=== PATIENT | female | born 1955 | race African-American/Black ===

== ENCOUNTER 2016-10-17 15:10 | Emergency (ER) | payer SELFPAY ==
[~2016-10-17] VITALS: Ht 162.6 cm; Wt 80.0 kg
[~2016-10-17 15:10] MED LIST: HYDR10SO PO; LOTR10CA PO; TRAM50 PO; ULTR50TA PO
[2016-10-17 15:12] VITALS: BP 153/74; PULSE 115; RESP 14; TEMP 98.2; O2SAT 99
[2016-10-17] MEDS ORDERED: MEDR4PAK PO (16:32)
--- NOTE | 2016-10-17 16:32 | PD ---
HPI Chief Complaint: Back/ Neck Pain or Injury Time Seen by Provider: 16:30 Travel History International Travel<30 days: No Contact w/Intl Traveler<30days: No Traveled to known affect area: No History of Present Illness HPI 61-year-old female presents to the emergency department requesting tramadol for her osteoarthritis flareup 3 days in bilateral knees. Denies fever, chills, nausea, vomiting. Denies erythema or edema to the knees. Reports pain is worse with walking. Denies paresthesias, loss of sensation, decreased range of motion, decreased strength to bilateral lower extremities. Has been taking over -the-counter medications with no relief. No known allergies. No other modifying factors or associated signs and symptoms. PFSH Past Medical History Arthritis: Yes Cancer: Yes (COLON) Cardiovascular Problems: No Diabetes: No Endocrine: No Gastrointestinal Disorders: Yes (GERD ; TUMOR COLON) Genitourinary: No Hepatitis: No Hiatal Hernia: Yes Hypertension: Yes Immune Disorder: No Musculoskeletal: Yes (ARTHRITIS; BACK AND NECK PAIN) Neurologic: No Psychiatric: No Reproductive: No Respiratory: No Thyroid Disease: No Menopausal: Yes Past Surgical History Abdominal Surgery: Yes (CHOLECYSTECTOMY) Body Medical Devices: STEEL PINS IN LEFT TOES Cholecystectomy: Yes Other Surgery: Yes Social History Alcohol Use: No Tobacco Use: No Substance Use: No Allergies-Medications (Allergen,Severity, Reaction): Coded Allergies: No Known Allergies (Unverified , 07/10/16) Reported Meds & Prescriptions Reported Meds & Active Scripts Active Medrol Dosepak (Methylprednisolone) 4 Mg Dspk 4 Mg PO DIRECTED Per Pharmacist direction Ultram (Tramadol HCl) 50 Mg Tab 50 Mg PO Q6H PRN FOR PAIN Ultram (Tramadol HCl) 50 Mg Tab 50 Mg PO Q8 PRN Reported Hydrocodone/Acetaminophen (Miscellaneous Medication) 1 Tab 1 Tab PO Q4-6H PRN Amyfrv93 - 10 Mg/20 Mg Cap 1 Tab PO DAILY Review of Systems Except as stated in HPI: all other systems reviewed are Neg Physical Exam Narrative GENERAL: Well-nourished, well-developed female patient, in no acute distress SKIN: Warm and dry. HEAD: Atraumatic. Normocephalic. EYES: Pupils equal and round. No scleral icterus. No injection or drainage. ENT: Mucosa pink and moist. Airway patent. NECK: Trachea midline. CARDIOVASCULAR: Regular rate. RESPIRATORY: No accessory muscle use. GASTROINTESTINAL: Rounded. MUSCULOSKELETAL: Bilateral knees are nonedematous and nonerythematous; no tenderness on palpation to the lateral, patellar, medial aspect; no obvious deformity; full range of motion with flexion to 90. Bilateral lower extremities are supple and non-tense with 2+ pedal pulses and sensory intact and without erythema or edema. Sensory intact. Ambulatory with a limp. Knee joints stable. Negative drawer test. NEUROLOGICAL: Awake and alert. Oriented 3. No obvious cranial nerve deficits. Motor grossly within normal limits. Normal speech. PSYCHIATRIC: Appropriate mood and affect; insight and judgment normal. Data Data Last Documented VS Vital Signs Date Time Temp Pulse Resp B/P Pulse Ox O2 Delivery O2 Flow Rate FiO2 10/17/16 15:12 98.2 115 14 153/74 99 Room Air MDM Medical Decision Making Medical Screen Exam Complete: Yes Emergency Medical Condition: Yes Medical Record Reviewed: Yes Differential Diagnosis Osteoarthritis, narcotic seeking, knee pain Narrative Course 61-year-old female requesting tramadol for osteoarthritis flareup 3 days. States she has also arthritis in both of her knees and for the past 3 days it has been painful and she comes here for tramadol. Patient is ambulatory with a limp. Afebrile. Denies fever, chills, nausea, vomiting. Heart rate recheck on physical exam is approximately 90 bpm. I offered the patient a nonnarcotic and she declined. Medrol Dosepak prescribed for home. Patient is medically cleared and stable for discharge. Discussed reasons to return to the emergency department. Instructed patient to follow up with primary care provider. Patient agrees with treatment plan. The patients vital signs are stable and the patient is stable for outpatient follow-up and treatment. Patient discharged home, stable and in no acute distress. Diagnosis Primary Impression: Osteoarthritis Qualified Code: M19.90 - Osteoarthritis, unspecified osteoarthritis type, unspecified site Referrals: Primary Care Physician Patient Instructions: General Instructions, Osteoarthritis (ED) Additional Instructions: Tylenol or ibuprofen as instructed and as needed for pain/information Follow-up with primary care provider next Return to the emergency department immediately with worsening symptoms Med/Other Pt SpecificInfo: Prescription(s) given Scripts Methylprednisolone Dosepak (Medrol Dosepak)4 Mg Dspk4 Mg PO DIRECTED #1 DSPK Ref 0 Per Pharmacist direction Prov:Genie Crisostomo 10/17/16 Disposition: 01 DISCHARGE HOME Condition: Stable Genie Crisostomo Oct 17, 2016 16:32
== END 2016-10-17 17:33 | disposition home or self-care (01) ==
LOC: NEPB 15:10
DX: M17.0 Bilateral primary osteoarthritis of knee (principal); K21.9 Gastro-esophageal reflux disease without esophagitis; I10 Essential (primary) hypertension
CPT/HCPCS: 99282

== ENCOUNTER 2017-05-05 10:15 | Inpatient (IN) | payer SELFPAY ==
[2017-05-05] VITALS (8 sets, daily range): BP systolic 121–175; BP diastolic 60–87; PULSE 96–111; RESP 16–20; TEMP 98.5–99.5; O2SAT 96–100
[~2017-05-05] VITALS: Ht 162.6 cm; Wt 83.5 kg
[~2017-05-05 10:15] MED LIST changes: +MEDR4PAK PO
[2017-05-05] MEDS ORDERED: LOTR10CA2 PO (10:33)
[2017-05-05] MEDS ORDERED: HYDR-3583 PO (10:33)
[2017-05-05] MEDS ORDERED: NEXI40CA PO (10:33)
[2017-05-05] MEDS ORDERED: MELO-1 PO (10:33)
[2017-05-05] MEDS ORDERED: SODIUM CHLOR 0.9% 1000 ML INJ 1,000 ML IV SCH (10:33)
[2017-05-05 10:35] LABS: MEAN CORPUSCULAR HGB CONC 29.5 % (32.0-36.0)
--- NOTE | 2017-05-05 10:40 | PD ---
HPI Chief Complaint: Abdominal Pain Time Seen by Provider: 10:24 Travel History International Travel<30 days: No Contact w/Intl Traveler<30days: No Traveled to known affect area: No History of Present Illness HPI Is a 61-year-old woman who presents to the emergent [place] abdominal pain. States it started about 6 and this morning she woke up with abdominal pain with nausea and vomiting. Pain is in the mid upper abdomen. She's not had any diarrhea. She about with this morning that was normal. She's had 6 episodes of vomiting. No chest pain of that she described a little bit of trouble breathing with the pain. Past medical history includes previous colon cancer treated with surgical partial colectomy, no chemotherapy or radiation, as well as on her gallbladder out in the remote past. No other abdominal surgeries. She does have bad arthritis, takes meloxicam daily as well as in opiate. She does have trouble with GERD and takes Nexium daily. She states her GERD symptoms are sometimes severe. She has not taken any other NSAIDs. No alcohol. No other complaints. History Past Medical History Narrative Medical Hypertension Arthritis Tetanus Vaccination: Unknown Menopausal: Yes Social History Alcohol Use: No Tobacco Use: No Allergies-Medications (Allergen,Severity, Reaction): Coded Allergies: No Known Allergies (Unverified , 05/05/17) Reported Meds & Prescriptions Reported Meds & Active Scripts Active Reported Nexium (Esomeprazole DR) 40 Mg Capdr 40 Mg PO DAILY Hydrocodone-Acetaminophen 10-325 mg Tab 1 Tab PO Q8HR PRN Meloxicam 15 Mg Tab 15 Mg PO DAILY Lotrel (Amlodipine-Benazepril) 10-40 Mg Cap 1 Cap PO DAILY Review of Systems Except as stated in HPI: all other systems reviewed are Neg Physical Exam Narrative GENERAL: Well-appearing 61 year-old woman, appears uncomfortable but nontoxic. SKIN: Focused skin assessment warm/dry. NECK: Trachea midline. No JVD. CARDIOVASCULAR: Regular rate and rhythm. No murmur appreciated. RESPIRATORY: No accessory muscle use. Clear to auscultation. Breath sounds equal bilaterally. GASTROINTESTINAL: Abdomen soft, mild to moderate epigastric pain and tenderness , no rebound or guarding. MUSCULOSKELETAL: No obvious deformities. No clubbing. No cyanosis. No edema. NEUROLOGICAL: Awake and alert. No obvious cranial nerve deficits. Motor grossly within normal limits. Normal speech. PSYCHIATRIC: Appropriate mood and affect; insight and judgment normal. Data Data Last Documented VS Vital Signs Date Time Temp Pulse Resp B/P Pulse Ox O2 Delivery O2 Flow Rate FiO2 05/05/17 12:32 106 18 147/65 100 Room Air 05/05/17 10:41 98.7 Orders Complete Blood Count With Diff (05/05/17 10:33) Comprehensive Metabolic Panel (05/05/17 10:33) Lipase (05/05/17 10:33) Ct Abd/Pel W Iv Contrast(Rout) (05/05/17 10:33) Iv Access Insert/Monitor (05/05/17 10:33) Ecg Monitoring (05/05/17 10:33) Oximetry (05/05/17 10:33) Morphine Inj (Morphine Inj) (05/05/17 10:45) Sodium Chlor 0.9% 1000 Ml Inj (Ns 1000 M (05/05/17 10:33) Sodium Chloride 0.9% Flush (Ns Flush) (05/05/17 10:45) Famotidine Inj (Pepcid Inj) (05/05/17 10:45) Al-Mag Hy-Si 40-40-4 Mg/Ml Liq (Mag-Al P (05/05/17 10:45) Lidocaine 2% Viscous (Xylocaine 2% Visco (05/05/17 10:45) Iohexol 350 Inj (Omnipaque 350 Inj) (05/05/17 11:54) Morphine Inj (Morphine Inj) (05/05/17 12:45) Midazolam Inj (Versed Inj) (05/05/17 12:45) Lidocaine Pf 4% Neb (Lidocaine Pf 4% Neb (05/05/17 12:45) Consult Rissa Nfs (05/05/17 ) Insert Ng Tube (05/05/17 12:46) Consult General Surgery (05/05/17 ) Labs Laboratory Tests Test 05/05/17 10:37 White Blood Count 18.9 TH/MM3 Red Blood Count 4.33 MIL/MM3 Hemoglobin 8.4 GM/DL Hematocrit 28.6 % Mean Corpuscular Volume 66.2 FL Mean Corpuscular Hemoglobin 19.5 PG Mean Corpuscular Hemoglobin 29.5 % Concent Red Cell Distribution Width 22.6 % Platelet Count 653 TH/MM3 Mean Platelet Volume 8.7 FL Neutrophils (%) (Auto) 89.4 % Lymphocytes (%) (Auto) 6.8 % Monocytes (%) (Auto) 2.8 % Eosinophils (%) (Auto) 0.8 % Basophils (%) (Auto) 0.2 % Neutrophils # (Auto) 16.9 TH/MM3 Lymphocytes # (Auto) 1.3 TH/MM3 Monocytes # (Auto) 0.5 TH/MM3 Eosinophils # (Auto) 0.2 TH/MM3 Basophils # (Auto) 0.0 TH/MM3 CBC Comment DIFF FINAL Differential Comment Sodium Level 139 MEQ/L Potassium Level 3.9 MEQ/L Chloride Level 105 MEQ/L Carbon Dioxide Level 25.2 MEQ/L Anion Gap 9 MEQ/L Blood Urea Nitrogen 10 MG/DL Creatinine 0.88 MG/DL Estimat Glomerular Filtration 80 ML/MIN Rate Random Glucose 147 MG/DL Calcium Level 9.2 MG/DL Total Bilirubin 0.7 MG/DL Aspartate Amino Transf 22 U/L (AST/SGOT) Alanine Aminotransferase 20 U/L (ALT/SGPT) Alkaline Phosphatase 121 U/L Total Protein 8.8 GM/DL Albumin 3.7 GM/DL Lipase 149 U/L [facility] Medical Decision Making Medical Screen Exam Complete: Yes Emergency Medical Condition: Yes Interpretation(s) LABS: CBC remarkable for white count of 18.9 thousand, moderate anemia with microcytic indices. Platelet count 653. CMP generally unremarkable. Total protein 8.8. Lipase 149 CT abdomen and pelvis: Abnormally dilated proximal and mid small bowel with decompressed distal small bowel indicating some degree of small bowel obstruction. 8 similarly segment of small bowel in the left pelvis that demonstrated some mucosal edema wall thickening and luminal narrowing. Is likely the cause for bowel obstruction. Etiology of abnormal segment is nonspecific. Differential Diagnosis Gastritis, pancreatitis, obstruction, or internal hernia, other Narrative Course Medical decision making Is a 61-year-old woman presents emergent department with epigastric pain and nausea and vomiting. She takes meloxicam 15 mg daily and has GERD and gastritis problems already. I think this is likely gastritis. She does have some tenderness. She does have surgical history including partial colectomy and cholecystectomy. We'll check labs, CT, treatment for gastritis. Likely discharge, hold NSAIDs, add sucralfate, Lortab for short course, outpatient follow-up. FINAL: Patient with small bowel obstruction, likely from abnormally thickened small bowel, etiology unclear. Spoke with Dr. Malhotra with general surgery, will come and see the patient. We'll place an NG tube. I spoke with Dr. Stanford, will admit the patient. Diagnosis Primary Impression: Small bowel obstruction Kirk Blakely MD May 05, 2017 10:40
[2017-05-05] MEDS ORDERED: SODIUM CHLORIDE 0.9% FLUSH 10 ML FLUSH IV FLUSH PRN (10:45)
[2017-05-05] MEDS ORDERED: LIDOCAINE VISCOUS 2% SOLN 15 ML UDC PO ONE (10:45)
[2017-05-05] MEDS ORDERED: MORPHINE SULFATE 4 MG/ML INJ IV PUSH ONE ×2 (10:45→12:45)
[2017-05-05] MEDS ORDERED: ALUMINUM/MAGNESIUM/SIMETH 30 ML CUP PO ONE (10:45)
[2017-05-05] MEDS ORDERED: FAMOTIDINE 20 MG/2 ML VIAL IV PUSH ONE (10:45)
[2017-05-05 10:58] LABS: AUTOMATED NEUTROPHIL # 16.9 TH/MM3 (1.8-7.7); BASOPHIL % 0.2 % (0.0-2.0); EOSINOPHIL # 0.2 TH/MM3 (0-0.4); EOSINOPHIL % 0.8 % (0.0-4.0); HEMATOCRIT 28.6 % (35.0-46.0); HEMO FLAGS DIFF FINAL; LYMPH % 6.8 % (9.0-44.0); LYMPHOCYTE # 1.3 TH/MM3 (1.0-4.8); MEAN CELL VOLUME 66.2 FL (80.0-100.0); MEAN CORPUSCULAR HEMOGLOBIN 19.5 PG (27.0-34.0); MONO % 2.8 % (0.0-8.0); NEUT % 89.4 % (16.0-70.0); PLATELET COUNT 653 TH/MM3 (150-450); RED BLOOD COUNT 4.33 MIL/MM3 (4.00-5.30); RED CELL DISTRIBUTION WIDTH 22.6 % (11.6-17.2); WHITE BLOOD COUNT 18.9 TH/MM3 (4.0-11.0)
[2017-05-05 11:13] LABS: ALT (GPT) 20 U/L (10-53); ANION GAP 9 MEQ/L (5-15); AST (GOT) 22 U/L (15-37); BICARBONATE 25.2 MEQ/L (21.0-32.0); BLOOD UREA NITROGEN 10 MG/DL (7-18); CHLORIDE 105 MEQ/L (98-107); GLOMERULAR FILTRATION RATE 80 ML/MIN (>89); POTASSIUM 3.9 MEQ/L (3.5-5.1); SODIUM (NA) 139 MEQ/L (136-145)
[2017-05-05 11:14] LABS: ALKALINE PHOSPHATASE 121 U/L (45-117); TOTAL BILIRUBIN ADULT 0.7 MG/DL (0.2-1.0)
[2017-05-05] MEDS ORDERED: IOHEXOL 350 MG/ML 10 ML VIAL (for RAD DIAG) IV ONE (11:54)
--- NOTE | 2017-05-05 12:08 | RADRPT ---
EXAM DATE/TIME: 05/05/2017 11:45 [place] COMPARISON: CT ABDOMEN & PELVIS W/O CONTRAST, February 27, 2015, 18:07. INDICATIONS : Diffuse abdomen pain with nausea and vomiting today. IV CONTRAST: 93 cc Omnipaque 350 (iohexol) IV ORAL CONTRAST: No oral contrast ingested. RADIATION DOSE: 16.17 CTDIvol (mGy) MEDICAL HISTORY : Carcinoma, colon. Hernia, hiatal. Gastroesophageal reflux disease. SURGICAL HISTORY : Cholecystectomy. ENCOUNTER: Initial ACUITY: 1 day PAIN SCALE: 6/10 LOCATION: Bilateral abdomen TECHNIQUE: Volumetric scanning of the abdomen and pelvis was performed. Using automated exposure control and ad justment of the mA and/or kV according to patient size, radiation dose was kept as low as reasonably achievable to obtain optimal diagnostic quality images. DICOM format image data is available electro nically for review and comparison. FINDINGS: LOWER LUNGS: There is compressive atelectasis in the left lower lobe adjacent to the large hiatal hernia. LIVER: Homogeneous density without lesion. No significant bile duct dilatation is present. Patient is post cholecystectomy with clips in the gallbladder fossa. SPLEEN: Normal size without lesion. PANCREAS: Within normal limits. KIDNEYS: There are stable areas of right renal scarring with 2 adjacent calcifications in the right mid kidney representing either renal stones or more likely parenchymal calcification. There is an incidental 7 mm low-density lesion left mid kidney that is too small to characterize. ADRENAL GLANDS: Within normal limits. VASCULAR: There is no aortic aneurysm. BOWEL/MESENTERY: There is a large hiatal hernia. The jejunum and proximal ileum are dilated and fluid-filled with air- fluid levels in measure slightly greater than 3 cm. Small bowel feces sign is visualized within a seg ment of mid to distal small bowel in the left pelvis and directly adjacent to this is an 8 cm length segment of bowel that demonstrates luminal narrowing and mild wall thickening. Distal to this segment is decompressed ileum which connects to the colon in the left upper quadrant. There has been prior p artial colectomy with absent ascending and transverse colon. Trace free fluid is present the abdomen and pelvis. There is no free intraperitoneal air. ABDOMINAL WALL: Within normal limits. RETROPERITONEUM: There is no lymphadenopathy. BLADDER: No wall thickening or mass. REPRODUCTIVE: Within normal limits. INGUINAL: There is no lymphadenopathy or hernia. MUSCULOSKELETAL: There is severe left hip joint osteoarthritis and moderate right hip joint osteoarthritis. CONCLUSION: 1. Abnormally dilated proximal and mid small bowel with decompressed distal small bowel indicating so me degree of small bowel obstruction. There is an 8 cm length segment of small bowel in the left pelv is that demonstrates submucosal edema, wall thickening, and luminal narrowing. This is likely the cau se for the bowel obstruction. The etiology for the abnormal segment is nonspecific. 2. Nonacute findings include large hiatal hernia and severe left hip joint osteoarthritis. Mic Melchor MD on May 05, 2017 at 11:58 Board Certified Radiologist. This report was verified electronically.
[2017-05-05] MEDS ORDERED: RESP: LIDOCAINE HCL 4% PF 5 ML NEB NEB ONE (12:45)
[2017-05-05] MEDS ORDERED: MIDAZOLAM HCL 2 MG/2 ML VIAL IV PUSH ONE (12:45)
--- NOTE | 2017-05-05 13:54 | HHI.HP ---
[facility] Jass Last DO Admission Diagnosis small bowel obstruction Diagnoses: Chief Complaint: abdominal pain Travel History International Travel<30 Days: No Contact w/Intl Traveler <30 Da: No Traveled to Known Affected Are: No Sepsis Criteria SIRS Criteria (2 or more): Heart rate over 90, WBC > 69926, < 4000 or > 10% bands Criteria Outcome: Meets SIRS criteria History of Present Illness 61-year-old female with history of arthritis, colon cancer s/p resection, cholecystectomy, presents with acute onset of abdominal pain today 05/05/17. Patient reports she has been in her normal state of health until this morning around 6 AM when she was awakened by excruciating abdominal pain. She locates the pain diffusely across the upper abdomen without radiation, described as 10/ 10 constant cramping pains, associated with nausea/vomiting. She states she vomited ten times prior to arrival. She reports her bowel movements have been fairly normal, however yesterday and this morning her stool is described as hard , nonbloody. She did have an episode of diarrhea while in the ER. She reports subjective fevers and chills, no documented fevers. She states she took her Mobic for pain without any relief. Her symptoms persisted therefore she presented to the ED at 10am. Upon arrival to the ER, abdomen/pelvis CT showed dilated proximal and mid small bowel with decompressed distal small bowel indicating some degree of small bowel obstruction. The patient denies any prior history of SBO, but has history of abdominal surgeries including cholecystectomy and colectomy two years ago by Dr Hernandez. Otherwise patient denies any other medical complaints including no headache, lightheadedness, dizziness, chest pain, shortness of breath, or urinary complaints. Review of Systems Except as stated in HPI: all other systems reviewed are Neg Past Family Social History Past Medical History Hypertension Arthritis Colon cancer s/p resection (no chemo/radiation) Past Surgical History Bunionectomy Cholecystectomy Partial colectomy Colonoscopy Reported Medications Nexium (Esomeprazole DR) 40 Mg Capdr 40 Mg PO DAILY Hydrocodone-Acetaminophen 10-325 mg Tab 1 Tab PO Q8HR PRN Meloxicam 15 Mg Tab 15 Mg PO DAILY Lotrel (Amlodipine-Benazepril) 10-40 Mg Cap 1 Cap PO DAILY Allergies: Coded Allergies: No Known Allergies (Unverified , 05/05/17) Active Ordered Medications Current Medications Medications (Trade) Dose Ordered Sig/Maximino Route Start Time Stop Time Status Last Admin (NS Flush) 2 ml UNSCH PRN IV FLUSH 05/05/17 10:45 Family History Mother with lung cancer, Father with "natural causes" Son is healthy Social History Denies any tobacco, alcohol, or illicit drug use. Physical Exam Vital Signs Vital Signs Date Time Temp Pulse Resp B/P Pulse Ox O2 Delivery O2 Flow Rate FiO2 05/05/17 12:32 106 18 147/65 100 Room Air 05/05/17 10:41 98.7 101 16 175/87 97 Room Air 05/05/17 10:26 98.7 101 16 175/87 97 Room Air 05/05/17 10:26 16 05/05/17 10:19 98.7 109 16 175/87 97 Physical Exam GENERAL: Well-nourished, well-developed middle aged female patient in [facility]. SKIN: Warm and dry. No rash. HEAD: Normocephalic. Atraumatic. EYES: Pupils equal and round. No scleral icterus. No injection or drainage. ENT: No nasal bleeding or discharge. Mucous membranes pink and moist. NECK: Supple. Trachea midline. CARDIOVASCULAR: Regular rate and rhythm. S1, S2 noted. No murmur appreciated. RESPIRATORY: No accessory muscle use. Clear to auscultation. Breath sounds equal bilaterally. GASTROINTESTINAL: Abdomen soft, nondistended, diffusely TTP, worse across bilateral upper quadrants. Hypoactive bowel sounds. MUSCULOSKELETAL: No obvious deformities. Extremities without clubbing, cyanosis , or edema. NEUROLOGICAL: Awake and alert. No obvious cranial nerve deficits. Motor grossly within normal limits. 5/5 muscle strength in bilateral upper and lower extremities. Normal speech. PSYCHIATRIC: Appropriate mood and affect; insight and judgment normal. Laboratory Laboratory Tests Test 05/05/17 10:37 White Blood Count 18.9 Red Blood Count 4.33 Hemoglobin 8.4 Hematocrit 28.6 Mean Corpuscular Volume 66.2 Mean Corpuscular Hemoglobin 19.5 Mean Corpuscular Hemoglobin 29.5 Concent Red Cell Distribution Width 22.6 Platelet Count 653 Mean Platelet Volume 8.7 Neutrophils (%) (Auto) 89.4 Lymphocytes (%) (Auto) 6.8 Monocytes (%) (Auto) 2.8 Eosinophils (%) (Auto) 0.8 Basophils (%) (Auto) 0.2 Neutrophils # (Auto) 16.9 Lymphocytes # (Auto) 1.3 Monocytes # (Auto) 0.5 Eosinophils # (Auto) 0.2 Basophils # (Auto) 0.0 CBC Comment DIFF FINAL Differential Comment Sodium Level 139 Potassium Level 3.9 Chloride Level 105 Carbon Dioxide Level 25.2 Anion Gap 9 Blood Urea Nitrogen 10 Creatinine 0.88 Estimat Glomerular Filtration 80 Rate Random Glucose 147 Calcium Level 9.2 Total Bilirubin 0.7 Aspartate Amino Transf 22 (AST/SGOT) Alanine Aminotransferase 20 (ALT/SGPT) Alkaline Phosphatase 121 Total Protein 8.8 Albumin 3.7 Lipase 149 Result Diagram: 05/05/17 1037 05/05/17 1037 Imaging Last Impressions Abdomen/Pelvis CT 05/05/17 1033 Signed Impressions: Service Date/Time: Friday, May 05, 2017 11:45 - CONCLUSION: 1. Abnormally dilated proximal and mid small bowel with decompressed distal small bowel indicating some degree of small bowel obstruction. There is an 8 cm length segment of small bowel in the left pelvis that demonstrates submucosal edema, wall thickening, and luminal narrowing. This is likely the cause for the bowel obstruction. The etiology for the abnormal segment is nonspecific. 2. Nonacute findings include large hiatal hernia and severe left hip joint osteoarthritis. Mic Melchor MD Assessment and Plan Problem List: (1) Anemia ICD Code: D64.9 Status: Chronic (2) Small bowel obstruction ICD Code: K56.69 Status: Acute (3) HTN (hypertension) ICD Code: I10 Status: Chronic Assessment and Plan 61-year-old female with history of arthritis, colon cancer s/p resection, cholecystectomy, presents with acute onset of abdominal pain, nausea, vomiting today 05/05/17. Small Bowel Obstruction: suspect secondary to adhesions with prior abdominal surgeries. CT abd/pelvis images reviewed, showed dilated proximal and mid small bowel with decompressed distal small bowel indicating some degree of small bowel obstruction. Continue NG tube. Keep NPO. Monitor Is&Os. Check lactic acid. Give IV Protonix. Supportive treatment with IVF, pain control with IV morphine prn, IV zofran prn N/V. Consult general surgery. SIRS Criteria: with +leukocytosis WBC 18.9K, with HR 109 upon arrival. Afebrile. Suspect secondary to above. Check lactic acid. Monitor CBC. Microcytic Anemia: Hgb 8.4, history of anemia however previous baseline around 9 -10. Check iron studies/ferritin. Check stool hemoccult. Monitor H&H. Arthritis: chronic, stable. Hold patient's Mobic. Continue IV morphine prn pain. Hypertension: holding patient's amlodipine-benazepril while NPO. IV Vasotec prn. Monitor BP, adjust antihypertensives as needed. DVT Prophylaxis: teds/SCDs, avoid chemoprophylaxis for now with possible surgical intervention. Attestation Patient seen and examined with Tosha Eldridge PA-C. The exam, history, and the medical decision-making described in the above note were completed with the assistance of the dictating practitioner. I attest that I had a [id number] encounter with the patient on the same day, and personally performed all of the history, exam, or medical decision making. Discussed case with her thoroughly after seeing the patient, reviewed and agreed with the plan. Please see addendum in History, Physical examination. See below for any errata/additional input: 61-year-old female with history of arthritis, colon cancer s/p resection, cholecystectomy, presents with acute onset of abdominal pain today 05/05/17 associated with nausea, vomiting and severe abdominal pain. Patient has been having bowel movements, in fact had loose stools at one point. Vomitus is bilious, copious, about 10 times today or more. Not in distress Regular rate and rhythm Clear breath sounds Abdomen soft, decreased bowel sounds but present, no guarding, mildly tender on deep palpation. No edema Alert awake and oriented 3 CT scan showed possible distal small bowel SBO, could be from adhesions. Agree with NG tube placement, monitor for now, replace electrolytes, IVF, consult general surgery, if no resolution, might need exploration or adhesiolysis. Moderate leukocytosis, would send for C. difficile if there is another episode of diarrhea, check lactic acid, rule out sepsis. Physician Certification 2 Midnight Certification Type: Admission for Inpatient Services Order for Inpatient Services The services are ordered in accordance with Medicare regulations or non- Medicare payer requirements, as applicable. In the case of services not specified as inpatient-only, they are appropriately provided as inpatient services in accordance with the 2-midnight benchmark. Estimated LOS (days): 3 days is the estimated time the patient will need to remain in the hospital, assuming treatment plan goals are met and no additional complications. Post-Hospital Plan: Home Kayla Eldridge PA-C May 05, 2017 13:54 Flora Dove MD May 05, 2017 16:20
[2017-05-05] MEDS ORDERED: MORPHINE SULFATE 4 MG/ML INJ IV PUSH PRN (14:45)
[2017-05-05] MEDS ORDERED: ENALAPRILAT 1.25 MG/ML VIAL IV PUSH PRN (15:00)
[2017-05-05] MEDS ORDERED: NALOXONE HCL 0.4 MG/ML AMP IV PRN (15:00)
[2017-05-05] MEDS: PANTOPRAZOLE SODIUM 40 MG VIAL IV PUSH SCH (16:02)
[2017-05-05] MEDS: MORPHINE SULFATE 4 MG/ML INJ IV PUSH PRN ×3 (16:02→21:32)
[2017-05-05] MEDS: D5-1/2 NS + KCL 20 MEQ INJ 1,000 ML IV SCH (16:03)
[2017-05-05] MEDS: ONDANSETRON HCL 4 MG/2 ML VIAL IVP PRN (18:46)
[2017-05-05 18:49] LABS: TRANSFERRIN IRON PROFILE 346 MG/DL (200-360)
[2017-05-05 18:52] LABS: FERRITIN 4 NG/ML (8-252)
--- NOTE | 2017-05-05 19:39 | MB ---
cc: MARIEL VIEIRA MD DATE OF CONSULTATION: 05/05/2017. REASON FOR CONSULTATION: Small bowel obstruction. HISTORY OF PRESENT ILLNESS: The patient is 61-year-old female with several medical issues including history of arthritis, colon cancer status post resection two years ago and cholecystectomy who presents with acute onset of abdominal pain. She states the pain started around 06:00 a.m. and woke her up from sleep and was 10/10. It is currently 06/10 crampy diffuse radiation associated with multiple episodes of nausea and vomiting. She does report having bowel movements this morning and also while in the emergency room. She came to the emergency room for further evaluation including CT scan showing concern for small-bowel obstruction with adhesions in the left lower quadrant. Surgery was consulted for further evaluation. She states on my exam that she had somewhat consistent pain but it has improved since placement of a nasogastric tube with decompression. She does state her nausea has improved as well and does confirm the above in terms of description of pain and issues. She does have a leukocytosis of 18,000 but otherwise denies fevers or chills. PAST MEDICAL HISTORY: 1. Hypertension. 2. Arthritis. 3. Colon cancer. PAST SURGICAL HISTORY: 1. Bunionectomy. 2. Cholecystectomy. 3. Partial colectomy. 4. Colonoscopy. MEDICATIONS: See the electronic medical record. ALLERGIES: NO KNOWN DRUG ALLERGIES. SOCIAL HISTORY: Denies smoking, ethyl alcohol or IV drug abuse. FAMILY HISTORY: Mother had lung cancer. Father healthy. REVIEW OF SYSTEMS: GENERAL: The patient denies headaches or fevers. HEAD, EYES, EARS, NOSE, THROAT: Denies eye pain, ear pain. NECK: Denies swelling or pain. RESPIRATORY: Denies cough or wheeze. CARDIOVASCULAR: Denies palpitations or chest pain. ABDOMEN: Complained of nausea, vomiting, abdominal pain, distension. MUSCULOSKELETAL: Denies arthralgias and myalgias. NEUROLOGIC: Denies numbness or tingling. PSYCHIATRIC: Denies change in mood or affect. INTEGUMENT: Denies lesions or rashes. ENDOCRINE: Denies polyuria or polydipsia. PHYSICAL EXAMINATION: GENERAL: Patient in no acute distress. VITAL SIGNS: Temperature 98.7, pulse 101, respirations 16, blood pressure 175/87, pulse oximetry 97% on room air. HEAD, EYES, EARS, NOSE, THROAT: Pupils equal, round and reactive to light and accommodation. Extraocular muscles intact. Normocephalic and atraumatic. NECK: The neck is supple. Trachea is midline. LUNGS: Clear to auscultation bilaterally. HEART: Regular rate and rhythm. S1 and S2. ABDOMEN: Abdomen soft, distended, mild tenderness to palpation, diffuse. No rebound. No guarding. Decreased bowel sounds. EXTREMITIES: Warm. No cyanosis or edema. NEUROLOGIC: Alert and oriented times four. 5/5 motor all extremities. PSYCHIATRIC: Appropriate mood and affect. BACK: Normal curvature. LABORATORY AND DIAGNOSTIC DATA: WBC 18.9, hemoglobin 8.4, hematocrit 28.6, platelets 653,000. Sodium 139, potassium 3.9, chloride 105, BUN 10, creatinine 0.8, calcium 9.2. AST 22, ALT 20, alkaline phosphatase 121. Albumin 3.7. Lipase 149. CT reviewed by myself shows dilated proximal mid small bowel distended several air fluid levels, thickening of adjacent left lower quadrant bowel consistent with small bowel obstruction. Large hiatal hernia. ASSESSMENT: The patient is a 61-year-old female who presents with small bowel obstruction. PLAN: After full clinical, radiologic and laboratory workup the patient above-named issues including small bowel obstruction likely from adhesions as the patient has a history of surgery in the past. Discussed with the patient the findings and treatment. Agree with NG tube placement, decompression nonoperative management at this time. We will conduct serial abdominal exams and will continue to closely monitor labs and continue to evaluate the patient. If the white count does continue to increase or there is worsening distension and pain, we will consider operative intervention. However, at this point we will attempt initial treatment with nonoperative management. We will continue to check and correct electrolytes. Replace IV fluid volume. Pain control. Will check abdominal x-ray in the morning. This was discussed in detail with the staff and the patient stated understanding and agreed. MD OTILIA Tamez/CURT /5:46 PM /7:25 PM
[2017-05-05 21:03] LABS: MEAN CORPUSCULAR HGB CONC 28.4 % (32.0-36.0)
[2017-05-06 00:33] VITALS: BP 105/59; PULSE 93; RESP 18; TEMP 97.7; O2SAT 99
[2017-05-06] MEDS: D5-1/2 NS + KCL 20 MEQ INJ 1,000 ML IV SCH ×3 (00:53→20:49)
[2017-05-06] MEDS: MORPHINE SULFATE 4 MG/ML INJ IV PUSH PRN ×2 (03:12→11:07)
[2017-05-06 03:30] LABS: AUTOMATED NEUTROPHIL # 7.9 TH/MM3 (1.8-7.7); BASOPHIL % 0.2 % (0.0-2.0); EOSINOPHIL # 0.2 TH/MM3 (0-0.4); HEMATOCRIT 26.1 % (35.0-46.0); HEMO FLAGS DIFF FINAL; LYMPH % 15.5 % (9.0-44.0); LYMPHOCYTE # 1.8 TH/MM3 (1.0-4.8); MEAN CELL VOLUME 66.6 FL (80.0-100.0); MEAN CORPUSCULAR HEMOGLOBIN 18.9 PG (27.0-34.0); MONO % 12.2 % (0.0-8.0); NEUT % 70.1 % (16.0-70.0); PLATELET COUNT 489 TH/MM3 (150-450); RED BLOOD COUNT 3.91 MIL/MM3 (4.00-5.30); RED CELL DISTRIBUTION WIDTH 22.3 % (11.6-17.2); WHITE BLOOD COUNT 11.3 TH/MM3 (4.0-11.0)
[2017-05-06 03:50] LABS: BICARBONATE 25.1 MEQ/L (21.0-32.0); POTASSIUM 4.1 MEQ/L (3.5-5.1)
--- NOTE | 2017-05-06 06:08 | RADRPT ---
EXAM DATE/TIME: 05/06/2017 05:48 [facility] COMPARISON: CT ABDOMEN & PELVIS W CONTRAST, May 05, 2017, 11:45. INDICATIONS : Follow up obstruction. MEDICAL HISTORY : None. SURGICAL HISTORY : None. ENCOUNTER: Subsequent ACUITY: 4 - 6 days PAIN SCORE: 5/10 LOCATION: Bilateral lower quadrant FINDINGS: A nasogastric tube is in place with its tip in the stomach. There are surgical clips in the right upp er quadrant compatible with prior cholecystectomy. There is decrease in small bowel distention. No fr ee air is identified. CONCLUSION: 1. Decreasing small bowel distention when compared to the prior study Bryant Delcid MD on May 06, 2017 at 6:05 Board Certified Radiologist. This report was verified electronically.
[2017-05-06 08:00] VITALS: BP 123/69; PULSE 90; RESP 18; TEMP 98.1; O2SAT 100
[2017-05-06] MEDS: ONDANSETRON HCL 4 MG/2 ML VIAL IVP PRN (11:08)
[2017-05-06 12:00] VITALS: BP 120/60; PULSE 92; RESP 18; TEMP 98.2; O2SAT 100
[2017-05-06 12:26] LABS: C. DIFF EPI 027 PRESUMPTIVE NEGATIVE (NEGATIVE)
[2017-05-06 13:06] LABS: HEMOGLOBIN A1a 1.5 %; HEMOGLOBIN A1b 1.8 %; HEMOGLOBIN Ao 85.2 %; HEMOGLOBIN LA1C 1.5 %; HEMOGLOBIN P3 3.7 %
[2017-05-06 13:12] LABS: C. DIFF TOXIN PCR POSITIVE (NEGATIVE)
--- NOTE | 2017-05-06 13:58 | HHI.PR ---
Subjective Remarks Follow up for SBO. The patient reports feeling much better today. She wants the NG tube out and wants to eat. She denies any abdominal pain, nausea, or vomiting. She had 1 regular formed BM last night and another BM this morning. Denies fevers/chills. She complains of arthritis knee pain which is why she took the IV morphine earlier today. She would like to restart her Perry because this last longer than the morphine. Otherwise, the patient has no other medical complaints at this time. Objective Vitals Vital Signs Date Time Temp Pulse Resp B/P Pulse Ox O2 Delivery O2 Flow Rate FiO2 05/06/17 12:00 98.2 92 18 120/60 100 05/06/17 08:00 98.1 90 18 123/69 100 05/06/17 03:17 18 05/06/17 00:33 97.7 93 18 105/59 99 05/05/17 20:00 99.5 103 20 127/60 100 05/05/17 16:00 98.5 111 17 121/72 96 05/05/17 15:24 95 19 156/60 99 05/05/17 14:46 96 16 137/70 99 Room Air I/O 05/05/17 05/05/17 05/05/17 05/06/17 05/06/17 05/06/17 07:00 15:00 23:00 07:00 15:00 23:00 Intake Total 1000 ml 239 ml 662 ml Output Total 300 ml 75 ml 0 ml Balance 700 ml 164 ml 662 ml Intake IV Total 1000 ml 239 ml 662 ml Gastric Drainage Total 75 ml 0 ml Emesis 300 ml # Voids 1 0 # Bowel Movements 1 0 Result Diagram: 05/06/17 0308 05/06/17 0308 Imaging Last Impressions Abdomen X-Ray 05/06/17 0600 Signed Impressions: Service Date/Time: Saturday, May 06, 2017 05:48 - CONCLUSION: 1. Decreasing small bowel distention when compared to the prior study Bryant Delcid MD Abdomen/Pelvis CT 05/05/17 1033 Signed Impressions: Service Date/Time: Friday, May 05, 2017 11:45 - CONCLUSION: 1. Abnormally dilated proximal and mid small bowel with decompressed distal small bowel indicating some degree of small bowel obstruction. There is an 8 cm length segment of small bowel in the left pelvis that demonstrates submucosal edema, wall thickening, and luminal narrowing. This is likely the cause for the bowel obstruction. The etiology for the abnormal segment is nonspecific. 2. Nonacute findings include large hiatal hernia and severe left hip joint osteoarthritis. Mic Melchor MD Objective Remarks GENERAL: Well-nourished, well-developed middle aged female patient in [facility]. SKIN: Warm and dry. No rash. HEENT: Normocephalic. Atraumatic. Pupils equal and round. Mucous membranes pink and moist. NECK: Supple. Trachea midline. CARDIOVASCULAR: Regular rate and rhythm. S1, S2 noted. No murmur appreciated. RESPIRATORY: No accessory muscle use. Clear to auscultation. Breath sounds equal bilaterally. GASTROINTESTINAL: Abdomen soft, non-tender, nondistended. Normoactive bowel sounds x4. MUSCULOSKELETAL: No obvious deformities. Extremities without clubbing, cyanosis , or edema. NEUROLOGICAL: Awake and alert. No obvious cranial nerve deficits. Motor grossly within normal limits. Normal speech. PSYCHIATRIC: Appropriate mood and affect; insight and judgment normal. Medications and IVs Current Medications Medications (Trade) Dose Ordered Sig/Maximino Route Start Time Stop Time Status Last Admin (NS Flush) 2 ml UNSCH PRN IV FLUSH 05/05/17 10:45 (Morphine Inj) 4 mg Q3H PRN IV PUSH 05/05/17 14:45 05/06/17 11:07 (Morphine Inj) 2 mg Q3H PRN IV PUSH 05/05/17 14:45 (Protonix Inj) 40 mg Q24H IV PUSH 05/05/17 16:00 05/05/17 16:02 (Zofran Inj) 4 mg Q6H PRN IVP 05/05/17 15:00 05/06/17 11:08 Naloxone HCl 0.4 mg 0.4 mg UNSCH PRN IV 05/05/17 15:00 (D5-1/2 NS + KCl 20 Meq Inj) 1,000 ml @ 100 mls/hr Q10H IV 05/05/17 14:53 05/06/17 10:53 (Vasotec Inj) 1.25 mg Q6H PRN IV PUSH 05/05/17 15:00 (Flagyl) 500 mg Q8HR PO 05/06/17 14:00 05/20/17 13:59 UNV A/P Problem List: (1) Anemia ICD Code: D64.9 Status: Chronic (2) Small bowel obstruction ICD Code: K56.69 Status: Acute (3) HTN (hypertension) ICD Code: I10 Status: Chronic Assessment and Plan 61-year-old female with history of arthritis, colon cancer s/p resection, cholecystectomy, presents with acute onset of abdominal pain, nausea, vomiting today 05/05/17. Small Bowel Obstruction: suspect secondary to adhesions with prior abdominal surgeries. CT abd/pelvis images reviewed, showed dilated proximal and mid small bowel with decompressed distal small bowel indicating some degree of small bowel obstruction. Lactic acid 1.1. NGT placed in ED. Continue IV Protonix. Supportive treatment with IVF, pain control with IV morphine prn, IV zofran prn N/V. Consult general surgery. Repeat abdominal xray today 05/06 shows decreasing small bowel distention. Initially kept NPO, patient symptoms much improved today ; no pain/N/V, will clamp tube, advance to clear liquid diet, and monitor. SIRS Criteria: with +leukocytosis WBC 18.9K, with HR 109 upon arrival. Afebrile. Suspect secondary to above. Lactic acid wnl. Monitor CBC, improved, WBC 11.3K. C.difficile Diarrhea: patient reported episodes of diarrhea prior to arrival. C.diff positive. Start on Flagyl 500mg po q8h [id number] (stop date 05/20). Microcytic Anemia: Hgb 8.4, history of anemia however previous baseline around 9 -10. Iron studies consistent with iron deficiency. Plan to start ferrous sulfate at discharge. Stool hemoccult pending. Monitor H&H, currently Hgb 7.4, no active bleeding. Arthritis: chronic, stable. Hold patient's Mobic. Continue IV morphine prn pain. Restart patient's Perry prn. Hypertension: holding patient's amlodipine-benazepril while NPO and BP well controlled. IV Vasotec prn. Monitor BP, adjust antihypertensives as needed. DVT Prophylaxis: teds/SCDs, avoid chemoprophylaxis for now with possible surgical intervention if condition worsens. Discharge Planning Possible discharge in 1-2 days if continued clinical improvement. Kayla Eldridge PA-C May 06, 2017 1:58 pm
[2017-05-06] MEDS ORDERED: ACETAMINOPHEN/HYDROcodone 325 MG/5 MG TAB PO PRN (14:00)
[2017-05-06] MEDS: metroNIDAZOLE 500 MG TAB PO SCH ×2 (14:03→20:49)
[2017-05-06] MEDS: ACETAMINOPHEN/HYDROcodone 325 MG/10 MG TAB PO PRN ×2 (14:41→20:49)
[2017-05-06] MEDS: PANTOPRAZOLE SODIUM 40 MG VIAL IV PUSH SCH (14:42)
--- NOTE | 2017-05-06 15:04 | HHI.PR ---
Subjective Subjective Notes DAILY PROGRESS NOTE FOR SURGICAL ATTENDING, DR. ZELALEM LACKEY Patient states she feels 100% better Had a bowel movement Abdominal pain resolved No more nausea wants NG tube out Objective Vitals/I&O Vital Signs Date Time Temp Pulse Resp B/P Pulse Ox O2 Delivery O2 Flow Rate FiO2 05/06/17 12:00 98.2 92 18 120/60 100 05/05/17 14:46 Room Air Labs Laboratory Tests Test 05/06/17 05/06/17 03:08 09:05 White Blood Count 11.3 Red Blood Count 3.91 Hemoglobin 7.4 Hematocrit 26.1 Mean Corpuscular Volume 66.6 Mean Corpuscular Hemoglobin 18.9 Mean Corpuscular Hemoglobin 28.4 Concent Red Cell Distribution Width 22.3 Platelet Count 489 Mean Platelet Volume 8.3 Neutrophils (%) (Auto) 70.1 Lymphocytes (%) (Auto) 15.5 Monocytes (%) (Auto) 12.2 Eosinophils (%) (Auto) 2.0 Basophils (%) (Auto) 0.2 Neutrophils # (Auto) 7.9 Lymphocytes # (Auto) 1.8 Monocytes # (Auto) 1.4 Eosinophils # (Auto) 0.2 Basophils # (Auto) 0.0 CBC Comment DIFF FINAL Differential Comment Hematology Comments Sodium Level 141 Potassium Level 4.1 Chloride Level 109 Carbon Dioxide Level 25.1 Anion Gap 7 Blood Urea Nitrogen 11 Creatinine 0.77 Estimat Glomerular Filtration 93 Rate Random Glucose 103 Lactic Acid Level 1.1 Calcium Level 8.2 Stool C. difficile Toxin (PCR) POSITIVE Stl C. difficile Toxin PRESUMPTIVE Epiderm 027 NEGATIVE Date/Time Procedure Status Source Growth 05/06/17 09:05 Stool Occult Blood (DONALD) Received Stool Stool Pending Radiology Last Impressions Abdomen X-Ray 05/06/17 0600 Signed Impressions: Service Date/Time: Saturday, May 06, 2017 05:48 - CONCLUSION: 1. Decreasing small bowel distention when compared to the prior study Bryant Delcid MD Abdomen/Pelvis CT 05/05/17 1033 Signed Impressions: Service Date/Time: Friday, May 05, 2017 11:45 - CONCLUSION: 1. Abnormally dilated proximal and mid small bowel with decompressed distal small bowel indicating some degree of small bowel obstruction. There is an 8 cm length segment of small bowel in the left pelvis that demonstrates submucosal edema, wall thickening, and luminal narrowing. This is likely the cause for the bowel obstruction. The etiology for the abnormal segment is nonspecific. 2. Nonacute findings include large hiatal hernia and severe left hip joint osteoarthritis. Mic Melchor MD Cardiovascular: Regular Lungs: Clear Abdomen: Non-distended, Non-tender, BS normal A/P Problem List: (1) C. difficile diarrhea Assessment and Plan 61-year-old female who ate at [employer] and then got some type of food poisoning she says she feels a lot better DC NG tube Advance diet as tolerated Treat for C. difficile Attending Statement NOTE FOR SURGICAL ATTENDING, DR. ZELALEM LACKEY I attest that I had a [id number] encounter with the patient on the same day, and personally performed and documented my assessment and findings in the medical record. The following services were provided during this hospital visit: Chart data review, vital sign assessments/reviewing monitor data Review of consultations notes if present. Medication orders/review and/or management Ordering and/or reviewing lab tests Ordering and/or interpreting/reviewing x-rays and/or diagnostic studies Care of the patient and discussion of the patient with the care team Documentation time To help prompt me to consider important information that might be impacting today's encounter and assessment, information from prior notes written by myself or my colleagues may have been "brought forward/copy and pasted" into today's note. Zelalem Lackey MD May 06, 2017 15:04
[2017-05-06 16:00] VITALS: BP 122/65; PULSE 88; RESP 17; TEMP 97.7; O2SAT 99
[2017-05-06 20:00] VITALS: BP 146/67; PULSE 78; RESP 18; TEMP 97.8; O2SAT 99
[2017-05-07] VITALS: BP 123/60; PULSE 86; RESP 22; TEMP 98; O2SAT 99
[2017-05-07] MEDS: ACETAMINOPHEN/HYDROcodone 325 MG/10 MG TAB PO PRN ×3 (00:34→09:07)
[2017-05-07] MEDS: D5-1/2 NS + KCL 20 MEQ INJ 1,000 ML IV SCH (04:32)
[2017-05-07] MEDS: metroNIDAZOLE 500 MG TAB PO SCH ×2 (04:32→12:32)
[2017-05-07 07:27] LABS: EOSINOPHIL # 0.4 TH/MM3 (0-0.4); EOSINOPHIL % 5.4 % (0.0-4.0); LYMPH % 19.5 % (9.0-44.0); LYMPHOCYTE # 1.5 TH/MM3 (1.0-4.8); MEAN CELL VOLUME 66.4 FL (80.0-100.0); MEAN CORPUSCULAR HEMOGLOBIN 20.2 PG (27.0-34.0); MEAN CORPUSCULAR HGB CONC 30.4 % (32.0-36.0); MONO % 10.4 % (0.0-8.0); NEUT % 64.7 % (16.0-70.0); PLATELET COUNT 315 TH/MM3 (150-450); RED BLOOD COUNT 3.14 MIL/MM3 (4.00-5.30); RED CELL DISTRIBUTION WIDTH 22.4 % (11.6-17.2); WHITE BLOOD COUNT 7.7 TH/MM3 (4.0-11.0)
[2017-05-07 07:39] LABS: HEMO FLAGS DIFF FINAL
[2017-05-07 07:42] LABS: HEMATOCRIT 20.9 % (35.0-46.0)
[2017-05-07 07:51] LABS: BICARBONATE 25.4 MEQ/L (21.0-32.0)
[2017-05-07 08:00] VITALS: BP 124/61; PULSE 84; RESP 18; TEMP 97.5; O2SAT 99
[2017-05-07] MEDS ORDERED: diphenhydrAMINE HCL 25 MG CAP PO PRN (10:00)
[2017-05-07] MEDS ORDERED: SODIUM CHLOR 0.9% 250 ML INJ 250 ML IV ONE (10:00)
[2017-05-07] MEDS ORDERED: ACETAMINOPHEN 325 MG TAB PO PRN (10:00)
[2017-05-07 12:00] VITALS: BP_SYST 120; PULSE 87; RESP 18; TEMP 98.8; O2SAT 100
[2017-05-07 12:22] LABS: HEMATOCRIT 23.2 % (35.0-46.0); REVIEW FLAG FINAL
[2017-05-07 12:56] VITALS: BP 120/58; PULSE 87; RESP 18; TEMP 98.8; O2SAT 100
[2017-05-07] MEDS ORDERED: METR-1 PO (13:16)
[2017-05-07] MEDS ORDERED: FERR325T8 PO (13:16)
[2017-05-07] MEDS ORDERED: VITA250T3 PO (13:16)
--- NOTE | 2017-05-07 13:18 | HHI.DS ---
Discharge Summary Admission Date May 05, 2017 at 12:58 pm Discharge Date: May 07, 2017 Admitting Diagnosis small bowel obstruction (1) Anemia ICD Code: D64.9 Diagnosis: Principal (2) Small bowel obstruction ICD Code: K56.69 Diagnosis: Principal (3) HTN (hypertension) ICD Code: I10 Brief History - From Admission 61-year-old female with history of arthritis, colon cancer s/p resection, cholecystectomy, presents with acute onset of abdominal pain today 05/05/17. Patient reports she has been in her normal state of health until this morning around 6 AM when she was awakened by excruciating abdominal pain. She locates the pain diffusely across the upper abdomen without radiation, described as 10/ 10 constant cramping pains, associated with nausea/vomiting. She states she vomited ten times prior to arrival. She reports her bowel movements have been fairly normal, however yesterday and this morning her stool is described as hard , nonbloody. She did have an episode of diarrhea while in the ER. She reports subjective fevers and chills, no documented fevers. She states she took her Mobic for pain without any relief. Her symptoms persisted therefore she presented to the ED at 10am. Upon arrival to the ER, abdomen/pelvis CT showed dilated proximal and mid small bowel with decompressed distal small bowel indicating some degree of small bowel obstruction. The patient denies any prior history of SBO, but has history of abdominal surgeries including cholecystectomy and colectomy two years ago by Dr Hernandez. Otherwise patient denies any other medical complaints including no headache, lightheadedness, dizziness, chest pain, shortness of breath, or urinary complaints. CBC/BMP: 05/07/17 1156 05/07/17 0620 Significant Findings Laboratory Tests Test 05/05/17 05/06/17 05/06/17 05/07/17 10:37 03:08 09:05 06:20 White Blood Count 18.9 TH/MM3 11.3 TH/MM3 (4.0-11.0) (4.0-11.0) Hemoglobin 8.4 GM/DL 7.4 GM/DL 6.3 GM/DL (11.6-15.3) (11.6-15.3) (11.6-15.3) Hematocrit 28.6 % 26.1 % 20.9 % (35.0-46.0) (35.0-46.0) (35.0-46.0) Mean Corpuscular Volume 66.2 FL 66.6 FL 66.4 FL (80.0-100.0) (80.0-100.0) (80.0-100.0) Mean Corpuscular Hemoglobin 19.5 PG 18.9 PG 20.2 PG (27.0-34.0) (27.0-34.0) (27.0-34.0) Mean Corpuscular Hemoglobin 29.5 % 28.4 % 30.4 % Concent (32.0-36.0) (32.0-36.0) (32.0-36.0) Red Cell Distribution Width 22.6 % 22.3 % 22.4 % (11.6-17.2) (11.6-17.2) (11.6-17.2) Platelet Count 653 TH/MM3 489 TH/MM3 (150-450) (150-450) Neutrophils (%) (Auto) 89.4 % 70.1 % (16.0-70.0) (16.0-70.0) Lymphocytes (%) (Auto) 6.8 % (9.0-44.0) Neutrophils # (Auto) 16.9 TH/MM3 7.9 TH/MM3 (1.8-7.7) (1.8-7.7) Estimat Glomerular Filtration 80 ML/MIN (>89) Rate Random Glucose 147 MG/DL (74-106) Iron Level 18 MCG/DL (50-170) Total Iron Binding Capacity 484 MCG/DL (250-450) Percent Iron Saturation 3.7 % (20-50) Ferritin 4 NG/ML (8-252) Alkaline Phosphatase 121 U/L (45-117) Total Protein 8.8 GM/DL (6.4-8.2) Red Blood Count 3.91 MIL/MM3 3.14 MIL/MM3 (4.00-5.30) (4.00-5.30) Monocytes (%) (Auto) 12.2 % 10.4 % (0.0-8.0) (0.0-8.0) Monocytes # (Auto) 1.4 TH/MM3 (0-0.9) Chloride Level 109 MEQ/L 109 MEQ/L (98-107) (98-107) Calcium Level 8.2 MG/DL 7.6 MG/DL (8.5-10.1) (8.5-10.1) Stool C. difficile Toxin (PCR) POSITIVE (NEGATIVE) Eosinophils (%) (Auto) 5.4 % (0.0-4.0) Blood Urea Nitrogen 5 MG/DL (7-18) Test 05/07/17 11:56 Hemoglobin 7.1 GM/DL (11.6-15.3) Hematocrit 23.2 % (35.0-46.0) PE at Discharge GENERAL: Well-nourished, well-developed middle aged female patient in [facility]. SKIN: Warm and dry. No rash. HEENT: Normocephalic. Atraumatic. Pupils equal and round. Mucous membranes pink and moist. NECK: Supple. Trachea midline. CARDIOVASCULAR: Regular rate and rhythm. S1, S2 noted. No murmur appreciated. RESPIRATORY: No accessory muscle use. Clear to auscultation. Breath sounds equal bilaterally. GASTROINTESTINAL: Abdomen soft, non-tender, nondistended. Normoactive bowel sounds x4. MUSCULOSKELETAL: No obvious deformities. Extremities without clubbing, cyanosis , or edema. NEUROLOGICAL: Awake and alert. No obvious cranial nerve deficits. Motor grossly within normal limits. Normal speech. PSYCHIATRIC: Appropriate mood and affect; insight and judgment normal. Pt update on day of discharge Patient is doing well. No fever, chills. No fatigue, dizziness, lightheadedness. Denies any chest pain, SOB. Wants to go home. Pt Condition on Discharge: Good Discharge Disposition: Discharge Home Discharge Time: > 30 minutes Discharge Instructions DIET: Follow Instructions for: As Tolerated, No Restrictions Activities you can perform: Regular-No Restrictions Follow up Referrals: PCP Follow-up - 1 Week New Orders: CBC WITH DIFF - 2 Weeks New Medications: Ascorbic Acid (Vitamin C) 250 Mg Tab 250 MG PO TID Nutritional Supplement #90 Ref 0 TAB Ferrous Sulfate (Ferrous Sulfate) 325 Mg (65 Mg Iron) Tablet 325 MG PO TIDPC Nutritional Supplement #90 Ref 0 TAB Metronidazole (Flagyl) 500 Mg Tab 500 MG PO Q8HR Infection #36 TAB Continued Medications: Esomeprazole DR (Nexium) 40 Mg Capdr 40 MG PO DAILY Ref 0 CAP Hydrocodone-Acetaminophen (Hydrocodone-Acetaminophen) 10-325 mg Tab 1 TAB PO Q8HR PRN PAIN #30 Ref 0 TAB Discontinued Medications: Amlodipine-Benazepril (Lotrel) 10-40 Mg Cap 1 CAP PO DAILY Blood Pressure Management #30 Ref 0 CAP Meloxicam (Meloxicam) 15 Mg Tab 15 MG PO DAILY Arthritis Pain #30 Ref 0 TAB Mariusz Em DO May 07, 2017 1:18 pm
== END 2017-05-07 14:34 | disposition home or self-care (01) | DRG 372 ==
LOC: NEPE 10:15 → NEDA 12:58 → N07B 15:30
PROVIDERS: ADMIT Hospitalist; ATTEND Hospitalist
DX: A04.7 Enterocolitis due to Clostridium difficile (principal); K56.5 Intestinal adhesions [bands] with obstruction (postinfection); R65.10 Systemic inflammatory response syndrome (SIRS) of non-infectious origin without acute organ dysfunction; I10 Essential (primary) hypertension; K21.9 Gastro-esophageal reflux disease without esophagitis; D50.9 Iron deficiency anemia, unspecified; K44.9 Diaphragmatic hernia without obstruction or gangrene; M15.9 Polyosteoarthritis, unspecified; Z85.038 Personal history of other malignant neoplasm of large intestine; Z90.49 Acquired absence of other specified parts of digestive tract
CPT/HCPCS: 74000; 74177; 80048; 80053; 82272; 82728; 83036; 83540; 83550; 83605; 83690; 85014; 85018; 85025; 86850; 86900; 86901; 86920; 87493; 94664; 96361; 96374; 96375; 96376; C9113; J2250; J2270; J2405; J3480; J7030; Q9967

== ENCOUNTER 2018-04-15 07:22 | Inpatient (IN) ==
--- NOTE | 2018-04-12 11:14 | MH ---
cc: Ron Webber MD DATE OF ADMISSION: 04/15/2018 ADMITTING DIAGNOSIS: Osteoarthritic degeneration, left hip now being admitted for a left total hip arthroplasty. HISTORY OF PRESENT ILLNESS: This 62-year-old female is being admitted today for left total hip arthroplasty due to severe painful osteoarthritic degeneration of the left hip. PAST MEDICAL HISTORY: She has anemia. She has a history of colon cancer, which has been removed. She has hypertension. CURRENT MEDICATIONS: Mobic stopped for surgery and [place]. REVIEW OF SYSTEMS: Noncontributory. FAMILY HISTORY: Noncontributory. SOCIAL HISTORY: She does not smoke or drink. ALLERGIES: NO KNOWN ALLERGIES. PHYSICAL EXAMINATION: GENERAL: We find a 62-year-old female well-developed, well-nourished, alert and oriented x 3, complaining of pain in her left hip. VITAL SIGNS: Blood pressure is 180/76, pulse 107 and regular, respirations 18, temperature 98.3, pulse oximetry 97% on room air. EYES: PERRLA, EOMI. Ears, nose, mouth clear. NECK: Supple. LUNGS: Clear. HEART: Regular rate. ABDOMEN: Soft, positive bowel sounds, nontender. EXTREMITIES: Reveal the left hip to have decreased range of motion. She is neurovascularly intact to her toes. IMPRESSION: Severe painful osteoarthritic degeneration, left hip. PLAN: Admission for left total hip arthroplasty today. The patient was given prescription for postoperative pain and anticoagulation control in the office. Understands the risks of surgery and plans on going home with home health care after surgical stay in the hospital. J. Micky Webber MD JRR/DL , 11:03 AM , 11:11 AM
[2018-04-15] MEDS ORDERED: Vancomycin Inj 1 GM/200 ML PIGGYBACK IV.SIG ONE (07:56)
[2018-04-15 08:30] LABS: Bilirubin,Urine Negative (Negative); Clarity,Urine Clear (Clear); Color,Urine Yellow (Yellw/Straw); Glucose,Urine (UA) Negative (Negative); Leukocyte Esterase,Urine Negative (Negative); Nitrite,Urine Negative (Negative); PH,Urine 5.5 (5.0-8.5); Urobilinogen,Urine 0.2 mg/dL (Less than 2)
[2018-04-15 08:37] LABS: RBC,Urine 0-3 /hpf (0-3); Squamous Epithelial Cell,Urine 0-5 /hpf (0-5); WBC,Urine 0-5 /hpf (0-5)
[2018-04-15 08:38] LABS: Bacteria,Urine Few /hpf
[2018-04-15 08:39] LABS: Specific Gravity,Urine 1.032 (1.002-1.035)
[2018-04-15] MEDS ORDERED: Chlorhexidine 4% Topical 120 APPLIC/120 ML Bottle TOPICAL SCH (08:45)
[2018-04-15] MEDS ORDERED: Tranexamic Acid Inj 1,000 MG in Sodium Chlor 0.9% Inj 100 ML IV.SIG ONE (08:45)
[2018-04-15] MEDS ORDERED: Post-op Orders (for Pharmacy) OTHER STA (08:45)
[2018-04-15] MEDS ORDERED: Bisacodyl 10 MG Supp RECTAL PRN (08:45)
[2018-04-15] MEDS ORDERED: Bupivacaine/Epi PF 0.25% Inj 20 ML, Bupivacaine Liposo PF 1.3% Inj 20 ML, Sodium Chlor ... P-ARTICULR SCH ×2 (08:45)
--- NOTE | 2018-04-15 08:51 | P.DCO ---
- Physical Therapy Order: Evaluate and treat, Improve ambulation, Strength and gait training - Home Health Nursing Order: Medical education, Nursing assessment with vital signs - Case Management Consult Yes - Certification I have seen patient Amber Michel on 04/15/18. My clinical findings support the need for the requested home health care services because: High risk of falls I certify that my clinical findings support that this patient is homebound because: Post-op weakness, Unsteady gait/balance
[2018-04-15] MEDS ORDERED: ceFAZolin 2 GM Premix Inj 2 GM/50 ML PIGGYBACK IV.SIG SCH (09:00)
[2018-04-15] MEDS ORDERED: Vancomycin Inj 1 GM/200 ML PIGGYBACK IV.SIG SCH (09:00)
[2018-04-15] MEDS ORDERED: Tranexamic Acid Inj 800 MG in Sodium Chlor 0.9% Inj 100 ML IV.SIG SCH ×2 (09:00→11:37)
[2018-04-15] MEDS ORDERED: Metoprolol Tartrate 25 MG Tablet PO SCH (09:15)
[2018-04-15] MEDS ORDERED: Chlorhexidine Gluconate 2% 1 Pack (2 Cloths) TOPICAL SCH (09:15)
[2018-04-15] MEDS ORDERED: Sodium Chlor 0.9% Inj 500 ML IV.SIG SCH (10:00)
[2018-04-15] MEDS ORDERED: HYDROmorphone PF Inj 2 MG/ML Vial ONE (10:40)
--- NOTE | 2018-04-15 12:01 | MP ---
cc: Ron Webber MD DATE OF OPERATION: 04/15/2018 PREOPERATIVE DIAGNOSIS: Osteoarthritic degeneration, left hip. POSTOPERATIVE DIAGNOSIS: Osteoarthritic degeneration, left hip. SURGERY PERFORMED: Left total hip arthroplasty using Aesculap component, size 46 cup with a 28 mm screw and my 6.5 E-liner, a size 8 stem, a modular head 28 cup, short neck. No cement utilized. SURGEON: Ron Webber MD BARGEMAN(S): LEONID Ga ANESTHESIA: General intubation. PROCEDURE: The patient was brought to the Operating Room, where after successful induction of spinal anesthesia was placed on the operating room table in the right lateral decubitus position. The left hip, thigh and leg were prepped and draped in the usual manner. A posterolateral approach was then utilized by making an incision over the proximal portion of the femur lateral aspect, carried across the greater trochanter, carried posterior in a curved incision toward the buttock. The incision was carried down through the subcutaneous tissue, through the fibers of the tensor fascia kal and gluteus lindy to expose the greater trochanteric bursa. This was then removed by sharp and blunt dissection. The hip was then internally rotated to expose the insertions of the short external rotators of the hip and were incised at their insertion into the greater trochanter and reflected posterior to protect the sciatic nerve. These were held with a Charnley retractor to better visualize the hip joint. The capsule was identified and removed by sharp dissection. The hip was then dislocated by internal rotation and flexion of the hip. The femoral calcar was then measured using the trial components for the appropriate length cut of the neck using an oscillating saw. After the cut was made the head was removed. The acetabulum was then approached and measured, the acetabulum reamed with the acetabular reamers. Next, the femoral calcar was approached by first inserting a canal finder followed by rigid reamers, followed by a cookie-cutter to the appropriate size, in this case being a #15. The broach was left in place and a planer used to plane the calcar to a smooth finish. The broach was then removed. The trial components were then inserted into place, the hip reduced, found to track smoothly with no evidence of subluxation or dislocation. All trial components were removed. The wound was irrigated copiously with antibiotic solution and Water Pik. The actual components were then inserted and impacted into place using Aesculap component, size 46 cup with a 28 mm screw and my 6.5 E-liner, a size 8 stem, a modular head 28 cup, short neck. No cement utilized. The hip was reduced, found to track smoothly with no evidence of subluxation or dislocation. The wound was irrigated copiously with antibiotic solution, meticulous hemostasis achieved. 60 mL Exparel used around the hip joint for extra pain control staying away from the sciatic nerve, which was identified and protected throughout the procedure. Capsule approximated with interrupted #1 Vicryl suture. Deep fascia approximated with a running #2 Quill and subcutaneous tissue approximated in multiple layers using interrupted and running 2-0 and 4-0 Monocryl suture. Prineo dressing and a knee immobilizer and abduction pillow brace. No drain utilized. ESTIMATED BLOOD LOSS: 300 mL. The sponge and suture counts were correct. The patient tolerated the procedure well and left the operating room in satisfactory condition. LEONID Ga was present during the entire procedure to include patient positioning and the procedure. The medical necessity a nurse practitioner as a first helper was indicated in this case due to the surgical complexity of the case itself. During the surgical case, the surgical assistant was working the back table while my surgical instrument mechanic LEONID was directly assisting me. It should be noted that an extra 45 minutes of time was needed in this case due to the amount of dissection and the severity of the osteoarthritic degeneration of the hip, this was the smallest hip size available and the smallest stem size available, which just that the patient after aggressive reaming and debridement of the joint, also multiple layers were necessitated in closing the deep fascia as she had quite a bit of fatty layers in the buttock region. The patient tolerated the procedure well and left the operating room in satisfactory condition. J. MD HUSSEIN Macedo/BARB , 11:43 AM , 11:58 AM
[2018-04-15] MEDS ORDERED: fentaNYL Citrate Inj 100 MCG/2 ML Ampul ONE (12:03)
[2018-04-15] MEDS ORDERED: *Meperidine Inj 25 MG/ML Vial PERIprocedural Use ONLY ONE (12:15)
[2018-04-15] MEDS ORDERED: *Ondansetron Inj 4 MG/2 ML Vial PERIprocedural Use ONLY ONE (12:20)
[2018-04-15] MEDS ORDERED: Tranexamic Acid Inj 800 MG in Sodium Chlor 0.9% Inj 100 ML IV.SIG ONE (12:30)
[2018-04-15] MEDS ORDERED: *morphine SULFATE 4 MG/ML PERIprocedure ONLY ONE ×2 (12:35→13:58)
--- NOTE | 2018-04-15 12:48 | XR ---
EXAM DATE: 04/15/2018 12:44 PM EDT AGE/SEX: 62 years / Female INDICATIONS: Post operative left hip. CLINICAL DATA: This is the patient's initial encounter. Patient reports that signs and symptoms have been present for 1 day and indicates a pain score of Nonresponsive. MEDICAL/SURGICAL HISTORY: . Carcinoma, colon. Hernia, hiatal. Gastroesophageal reflux disease. Cholecystectomy. COMPARISON: No prior exams available for comparison. FINDINGS: Views left hip are obtained. Left hip arthroplasty. Postsurgical changes. No hardware loosening or fr acture CONCLUSION: Left hip arthroplasty. Electronically signed by: Cristino Kenny MD 04/15/2018 12:46 PM EDT
--- NOTE | 2018-04-15 12:59 | XR ---
EXAM DATE: 04/15/2018 12:34 PM EDT AGE/SEX: 62 years / Female INDICATIONS: Left total hip in OR. CLINICAL DATA: This is the patient's initial encounter. Patient reports that signs and symptoms have been present for 1 day and indicates a pain score of Nonresponsive. MEDICAL/SURGICAL HISTORY: Non-responsive. Non-responsive. COMPARISON: No prior exams available for comparison. FINDINGS: Total hip arthroplasty is in place. The femoral and acetabular components appear intact. There are no signs of loosening or fracture. CONCLUSION: Intact total hip prosthesis for technique. Electronically signed by: Jess Villatoro MD 04/15/2018 12:58 PM EDT
[2018-04-15] MEDS ORDERED: amLODIPine 10 MG Tablet PO SCH (13:00)
[2018-04-15] MEDS ORDERED: *morphine SULFATE 10 MG/ML PERIprocedure ONLY ONE (13:04)
[2018-04-15] MEDS ORDERED: *Promethazine Inj 25 MG/ML Vial PERIprocedural use ONLY ONE (13:16)
--- NOTE | 2018-04-15 14:02 | P.CONIM ---
History of Present Illness Consult date: 04/15/18 Primary Care Provider: Jass Last Family Provider: Jass Last History of Present Illness: Mrs. Magana is a 62-year-old female. She is admitted secondary to left hip osteoarthritis and is seen status post left hip arthroplasty. She is doing well postprocedure. She complains of pain but nothing else. No nausea or vomiting. No headache. No other complaints today. Medical consult placed in regards to baseline hypertension and iron deficiency. Blood pressures are currently controlled. Review of Systems Musculoskeletal: Reports joint pain PMFSH - History History Provided By: Patient - Medical History Medical History: Medical History (Last Reviewed 04/15/18 @ 08:07 by Meeta Kahn) Colon cancer Arthritis Gastritis History of small bowel obstruction Hx of Clostridium difficile infection Hypertension Iron deficiency anemia Osteoarthritis Pain of left hip joint - Surgical History Surgical History: Surgical History (Last Reviewed 04/15/18 @ 08:07 by Meeta Kahn) History of bunionectomy of left great toe History of colectomy Hx of arthrodesis Hx of cholecystectomy - Family History Family History: Family History (Last Updated 04/15/18 @ 13:59 by Bossman Lund MD) Mother Lung cancer - Tobacco History Second Hand Smoke Exposure: No Smoking Status: Never smoker - Alcohol History How Often Do You Have a Drink Containing Alcohol: Never - Substance Use History Substance History: No History of Abuse - Travel History Recent Travel in the [place] Within the Last 8 Weeks: No Recent Travel Out of the Country Within the Last 8 Weeks: No Medications and Allergies Active Medications: Active Medications Hydrocodone Bitart/Acetaminophen ([place] 7.5/325) 1 tab PO Q4H PRN PRN Reason: PAIN LESS THAN 5 ON SCALE Hydrocodone Bitart/Acetaminophen ([place] 7.5/325) 2 tab PO Q6H PRN PRN Reason: PAIN SCALE 5 TO 10 Al Hydroxide/Mg Hydroxide (Milk Of Magnesia Liq) 30 ml PO BID PRN PRN Reason: Mild Constipation Amlodipine Besylate (Norvasc) 10 mg PO DAILY [place] Apixaban (Eliquis) 2.5 mg PO BID [place] Ascorbic Acid (Vitamin C) 250 mg PO DAILY [place] Benazepril HCl (Lotensin) 40 mg PO DAILY [place] Bisacodyl (Dulcolax Supp) 10 mg RECTAL DAILY PRN PRN Reason: SEVERE CONSITIPATION Chlorhexidine Gluconate (Hibiclens 4% Topical) 1 applicatio TOPICAL ONCE [place] Stop: 04/19/18 08:44 Last Admin: 04/15/18 07:55 Dose: 1 applicatio Chlorhexidine Gluconate (Chlorhexidine 2% Cloth) 3 pack TOPICAL ACCOUNT AUDITOR [facility] Stop: 04/18/18 09:09 Last Admin: 04/15/18 07:45 Dose: 3 pack Bupivacaine HCl/Epinephrine Bitart 20 ml/ Bupivacaine Liposome 20 ml/ Sodium Chloride 80 ml 0 ml P-ARTICULR ONCE [facility] Ferrous Sulfate (Ferosul) 325 mg PO DAILY [place] Tranexamic Acid 800 mg/ Sodium (Chloride) 108 mls @ 200 mls/hr IV.SIG ONCE [facility] Stop: 04/16/18 08:59 Last Infusion: 04/15/18 09:37 Dose: Infused Tranexamic Acid 800 mg/ Sodium (Chloride) 108 mls @ 200 mls/hr IV.SIG ONCE [facility] Stop: 04/16/18 11:36 Vancomycin/Sodium Chloride (Vancomycin Inj) 1 gm in 200 mls @ 200 mls/hr IV.SIG ACCOUNT AUDITOR [facility] Stop: 04/19/18 08:59 Cefazolin Sodium/Dextrose (Ancef 2 Gm Premix Inj) 2 gm in 50 mls @ 100 mls/hr IV.SIG ACCOUNT AUDITOR [facility] Stop: 04/19/18 08:59 Last Infusion: 04/15/18 09:17 Dose: Infused Cefazolin Sodium 1,000 mg/ (Sodium Chloride) 100 mls @ 200 mls/hr IV.SIG Q6H [facility] Stop: 04/16/18 04:29 Lactated Ringer's (Lr 1000 Ml Inj) 1,000 mls @ 80 mls/hr IV.CONT .[id number] [facility] Last Admin: 04/15/18 08:15 Dose: 80 mls/hr Sodium Chloride (Ns Inj) 500 mls @ 30 mls/hr IV.SIG .Q10H [facility] Stop: 04/18/18 09:09 Lactated Ringer's (Lr 1000 Ml Inj) 1,000 mls @ 30 mls/hr IV.SIG .Q24H [facility] Stop: 04/18/18 09:09 Last Admin: 04/15/18 08:15 Dose: 30 mls/hr Lactulose (Lactulose Liq) 30 ml PO DAILY PRN PRN Reason: SEVERE CONSITIPATION Metoprolol Tartrate (Lopressor) 25 mg PO ACCOUNT AUDITOR [facility] Stop: 04/18/18 09:09 Last Admin: 04/15/18 11:27 Dose: Not Given Miscellaneous Information ([facility] Nursing Information) 1 each OTHER UNSCH PRN PRN Reason: SEE LABEL COMMENTS Stop: 04/16/18 11:54 Morphine Sulfate (Morphine Inj) 2 mg IV.PUSH Q3H PRN PRN Reason: BREAKTHROUGH PAIN Multivitamins/Minerals (Theragran-M) 1 tab PO BID [facility] Stop: 06/14/18 08:59 Ondansetron HCl (Zofran Odt) 4 mg PO Q6H PRN PRN Reason: NAUSEA OR VOMITING Pantoprazole Sodium (Protonix) 40 mg PO DAILY [facility] Povidone Iodine (Betadine 5% Antisepsis Kit) 1 applicatio EACH [employer] ACCOUNT AUDITOR [facility] Stop: 04/18/18 09:09 Last Admin: 04/15/18 08:15 Dose: 1 applicatio Senna/Docusate Sodium (Dee-Colace) 1 tab PO BID [facility] Sennosides (Senokot) 17.2 mg PO BID PRN PRN Reason: Moderate Constipation Sodium Chloride (Ns Flush) 2 ml IV.FLUSH BID [facility] Sodium Chloride (Ns Flush) 2 ml IV.FLUSH PRN PRN PRN Reason: FLUSH AFTER USING IV ACCESS Allergies Allergy/AdvReac Type Severity Reaction Status Date / Time No Known Allergies Allergy Verified 04/12/18 09:03 Home Medications Medication Instructions Recorded Confirmed Type amlodipine-benazepril [Lotrel] 1 cap PO DAILY 04/12/18 04/15/18 History ascorbic acid (vitamin C) 250 mg PO DAILY 04/12/18 04/15/18 History esomeprazole magnesium [Nexium] 40 mg PO DAILY 04/12/18 04/15/18 History ferrous sulfate 325 mg PO DAILY 04/12/18 04/15/18 History hydrocodone-acetaminophen 1 tab PO Q8H PRN 04/12/18 04/15/18 History Exam Vital signs: Vital Signs 04/15/18 08:11 04/15/18 11:53 04/15/18 12:00 Temperature 99.0 F 97.5 F L Pulse Rate 95 H 104 H 101 H Respiratory Rate 20 20 15 Blood Pressure 171/77 H 130/69 122/70 Pulse Oximetry 100 99 99 04/15/18 12:15 04/15/18 12:30 Temperature Pulse Rate 84 80 Respiratory Rate 13 14 Blood Pressure 127/60 95/58 L Pulse Oximetry 99 99 Intake & Output 04/14/18 04/15/18 04/15/18 18:59 06:59 18:59 Intake Total 358 / 358 Balance 358 / 358 Weight 79.5 kg Intake: IV 358 / 358 Cyklokapron Inj 800 MG In NS 108 / 108 Inj 100 ML @ 200 mls/hr IV.SIG ONCE [place] Rx#:[id number] Vancomycin Inj 1 gm In 200 ml @ 200 / 200 0 mls/hr IV.SIG .STK-MED ONE Rx#:[id number] Ancef 2 GM Premix Inj 2 gm In 50 / 50 50 ml @ 100 mls/hr IV.SIG ACCOUNT AUDITOR [place] Rx#:[id number] Other: Weight On Admission 79.5 kg Narrative: GENERAL: NAD, A&Ox3 HEAD: Normocephalic. NECK: Supple, trachea midline. No lymphadenopathy. EYES: No scleral icterus. No injection or drainage. CARDIOVASCULAR: Regular rate and rhythm without murmurs, gallops, or rubs. RESPIRATORY: Breath sounds equal bilaterally. No accessory muscle use. GASTROINTESTINAL: Abdomen soft, non-tender, nondistended. MUSCULOSKELETAL: No cyanosis, or edema. limted ROM at left hip, post op, patient in brace. SKIN: Warm and dry. NEURO: No focal neurological deficits. Results - Labs Labs: Laboratory Results - last 24 hr 04/15/18 04/15/18 08:00 08:20 Urine Color Yellow Urine Clarity Clear Urine pH 5.5 Ur Specific [place] 1.032 Urine Protein 30 H Urine Glucose (UA) Negative Urine Ketones Negative Urine Occult Blood Moderate H Urine Nitrate Negative Urine Bilirubin Negative Urine Urobilinogen 0.2 Ur Leukocyte Esterase Negative Urine RBC 0-3 Urine WBC 0-5 Ur Squamous Epith Cells 0-5 Urine Bacteria Few H Blood Type O Positive Antibody Screen Negative - Imaging Impressions Hip X-Ray 04/15/18 00:00 CONCLUSION: Intact total hip prosthesis for technique. Hip X-Ray 04/15/18 08:42 CONCLUSION: Left hip arthroplasty. Assessment and Plan - Plan 62-year-old female admitted for elective left hip replacement surgery Osteoarthritis Status post left hip arthroplasty Continue pain treatment Orthopedic surgeons following Follow-up H&H in a.m. Monitor vital signs. Physical therapy to start PRN pain treatments Microcytic Anemia Hx Iron Defficiency Hx Continue supplementation Follow CBC Hypertension Continue baseline treatment Follow blood pressures Adjust treatments as needed DVT Prophylaxis Per surgical discretion, post op
[2018-04-15] MEDS ORDERED: Glycopyrrolate Inj 1 MG/5 ML Syringe IV.PUSH ONE (14:59)
[2018-04-15] MEDS ORDERED: Lidocaine PF 1% Inj 5 ML Syringe INFILTRATN ONE (14:59)
[2018-04-15] MEDS ORDERED: Esmolol Bolus Inj 100 MG/10 ML Vial IV.PUSH ONE (14:59)
[2018-04-15] MEDS ORDERED: Metoprolol Inj 5 MG/5 ML Vial IV.PUSH ONE (14:59)
[2018-04-15] MEDS ORDERED: Ketorolac Inj 30 MG/ML (IVP) Vial IV.PUSH ONE (14:59)
[2018-04-15] MEDS ORDERED: Neostigmine Inj 5 MG/5 ML Syringe IV.PUSH ONE (14:59)
[2018-04-15] MEDS: oxyCODONE/Acetaminophen 10/325 Tablet PO PRN ×3 (15:28→23:43)
[2018-04-15] MEDS: Morphine Inj 4 MG/ML Vial IV.PUSH PRN (20:51)
[2018-04-15] MEDS: Multivitamin/Minerals Therapeutic Tablet PO SCH (20:51)
[2018-04-15] MEDS: Senna/Docusate Sodium 8.6/50 MG Tablet PO SCH (20:51)
[2018-04-16] MEDS: Morphine Inj 4 MG/ML Vial IV.PUSH PRN ×2 (00:14→03:49)
[2018-04-16 06:19] LABS: Baso % (Auto) 0.1 % (0.0-2.0); Hematocrit 28.7 % (35.0-46.0); Hemoglobin 9.5 gm/dL (11.6-15.3); Lymph % (Auto) 10.5 % (9.0-44.0); Mean Corpuscular HGB Conc 32.9 % (32.0-36.0); Mean Corpuscular Hemoglobin 27.8 pg (27.0-34.0); Mean Corpuscular Volume 84.5 fL (80.0-100.0); Mean Platelet Volume 9.4 fL (7.0-11.0); Mono % (Auto) 10.5 % (0.0-8.0); Neut # (Auto) 7.5 th/mm3 (1.8-7.7); Neut % (Auto) 78.9 % (16.0-70.0); Platelet Count 221 th/mm3 (150-450); Red Cell Distribution Width 16.6 % (11.6-17.2); White Blood Count 9.5 th/mm3 (4.0-11.0)
[2018-04-16 06:44] LABS: Albumin 2.9 g/dL (3.4-5.0); Anion Gap 9 meq/L (5-15); Aspartate Aminotransferase 56 U/L (15-37); Blood Urea Nitrogen 17 mg/dL (7-18); Calcium 8.2 mg/dL (8.5-10.1); Carbon Dioxide 24.5 meq/L (21.0-32.0); Chloride 110 meq/L (98-107); Glomerular Filtration Rate 72 mL/min (>89); Glucose,Random 111 mg/dL (74-106); Potassium 3.9 meq/L (3.5-5.1); Sodium 143 meq/L (136-145)
[2018-04-16 06:45] LABS: Alanine Aminotransferase 77 U/L (10-53)
[2018-04-16 06:47] LABS: Alkaline Phosphatase 96 U/L (45-117); Total Protein 6.3 g/dL (6.4-8.2)
[2018-04-16] MEDS: oxyCODONE/Acetaminophen 10/325 Tablet PO PRN ×2 (08:51→12:20)
[2018-04-16] MEDS: Ascorbic Acid 500 MG Tablet PO SCH ×2 (08:52→08:53)
[2018-04-16] MEDS: Senna/Docusate Sodium 8.6/50 MG Tablet PO SCH ×2 (08:53)
[2018-04-16] MEDS: Multivitamin/Minerals Therapeutic Tablet PO SCH ×2 (08:54)
[2018-04-16] MEDS: Ferrous Sulfate 325 MG Tablet PO SCH ×2 (08:54)
--- NOTE | 2018-04-16 10:08 | P.PNOP ---
Subjective Interval history: Patient comfortable today with no complaints. Ready for discharge. Physical Exam Vital signs: Vital Signs 04/15/18 11:53 04/15/18 12:00 04/15/18 12:15 Temperature 97.5 F L Pulse Rate 104 H 101 H 84 Respiratory Rate 20 15 13 Blood Pressure 130/69 122/70 127/60 Pulse Oximetry 99 99 99 04/15/18 12:30 04/15/18 12:45 04/15/18 13:00 Temperature Pulse Rate 80 79 78 Respiratory Rate 14 16 14 Blood Pressure 95/58 L 98/58 L 112/55 L Pulse Oximetry 99 97 99 04/15/18 13:30 04/15/18 14:00 04/15/18 14:30 Temperature Pulse Rate 84 82 Respiratory Rate 13 13 Blood Pressure 121/57 L 107/60 Pulse Oximetry 95 94 L 98 04/15/18 14:40 04/15/18 16:00 04/15/18 20:00 Temperature 97.7 F 97.2 F L 97.9 F Pulse Rate 80 99 H 118 H Respiratory Rate 15 18 17 Blood Pressure 110/63 122/60 135/73 Pulse Oximetry 93 L 99 98 04/16/18 00:00 04/16/18 04:00 Temperature 97.9 F 97.7 F Pulse Rate 98 H 99 H Respiratory Rate 17 17 Blood Pressure 120/62 137/69 Pulse Oximetry 100 100 Intake & Output 04/15/18 04/16/18 04/16/18 18:59 06:59 18:59 Intake Total 1358 / 1358 340 / 340 Output Total 300 / 300 Balance 1058 / 1058 340 / 340 Weight 79.5 kg 80 kg Intake: IV 1358 / 1358 100 / 100 LR 1000 mL Inj 1,000 ML @ 80 1000 / 1000 mls/hr IV.CONT .[id number] [place] Rx# :[id number] Cyklokapron Inj 800 MG In NS 108 / 108 Inj 100 ML @ 200 mls/hr IV.SIG ONCE [place] Rx#:[id number] Vancomycin Inj 1 gm In 200 ml @ 200 / 200 0 mls/hr IV.SIG .STK-MED ONE Rx#:[id number] Ancef 2 GM Premix Inj 2 gm In 50 / 50 50 ml @ 100 mls/hr IV.SIG KIESELGUHR REGENERATOR OPERATOR [place] Rx#:[id number] Ancef Inj 1,000 MG In NS Inj 100 / 100 100 ML @ 200 mls/hr IV.SIG Q6H [place] Rx#:[id number] Oral 240 / 240 Output: Urine 300 / 300 Other: # Voids 1 6 Date of Last Bowel Movement 04/14/18 Weight On Admission 79.5 kg - Constitutional no acute distress - Urinary Catheter Management Straight Cath placed during this visit: yes Reason for continuing: Not indwelling catheter Insertion date: 04/15/18 Insertion time: 08:00 Results - Labs CBC & Chem 7: 04/16/18 05:29 04/16/18 05:29 Laboratory Results - last 24 hr 04/16/18 04/16/18 05:29 05:29 WBC 9.5 RBC 3.40 L Hgb 9.5 L Hct 28.7 L MCV 84.5 MCH 27.8 MCHC 32.9 RDW 16.6 Plt Count 221 MPV 9.4 Neut % (Auto) 78.9 H Lymph % (Auto) 10.5 [place] % (Auto) 10.5 H Eos % (Auto) 0.0 Baso % (Auto) 0.1 Neut # (Auto) 7.5 Lymph # (Auto) 1.0 [place] # (Auto) 1.0 H Eos # (Auto) 0.0 Baso # (Auto) 0.0 WBC Differential . Differential Comment Auto diff final Sodium 143 Potassium 3.9 Chloride 110 H Carbon Dioxide 24.5 Anion Gap 9 BUN 17 Creatinine 0.96 Estimated GFR 72 L Random Glucose 111 H Calcium 8.2 L Total Bilirubin 0.5 AST 56 H ALT 77 H Alkaline Phosphatase 96 Total Protein 6.3 L D Albumin 2.9 L - Imaging Impressions Hip X-Ray 04/15/18 00:00 CONCLUSION: Intact total hip prosthesis for technique. Hip X-Ray 04/15/18 08:42 CONCLUSION: Left hip arthroplasty. Assessment and Plan - Problem List (1) Status post total hip replacement, left Code(s): Z96.642 - Presence of left artificial hip joint Status: Acute - Attending Attestation Attending Attestation: Dressing dry and intact. She is neurovascularly intact to her toes. She has no calf tenderness. Plan is for discharge after class today with home health care and physical therapy. Follow-up in the office next week. Discharged in stable condition today.
--- NOTE | 2018-04-16 13:04 | P.PN ---
Subjective Interval history: Follow-up for left hip arthroplasty. Patient is currently doing well. Tolerating lunch well. No fever or chills. Excited about going home. Physical Exam Vital signs: Vital Signs 04/15/18 13:30 04/15/18 14:00 04/15/18 14:30 Temperature Pulse Rate 84 82 Respiratory Rate 13 13 Blood Pressure 121/57 L 107/60 Pulse Oximetry 95 94 L 98 04/15/18 14:40 04/15/18 16:00 04/15/18 20:00 Temperature 97.7 F 97.2 F L 97.9 F Pulse Rate 80 99 H 118 H Respiratory Rate 15 18 17 Blood Pressure 110/63 122/60 135/73 Pulse Oximetry 93 L 99 98 04/16/18 00:00 04/16/18 04:00 Temperature 97.9 F 97.7 F Pulse Rate 98 H 99 H Respiratory Rate 17 17 Blood Pressure 120/62 137/69 Pulse Oximetry 100 100 Intake & Output 04/15/18 04/16/18 04/16/18 18:59 06:59 18:59 Intake Total 1358 / 1358 340 / 340 Output Total 300 / 300 Balance 1058 / 1058 340 / 340 Weight 79.5 kg 80 kg Intake: IV 1358 / 1358 100 / 100 LR 1000 mL Inj 1,000 ML @ 80 1000 / 1000 mls/hr IV.CONT .[id number] [place] Rx# :[id number] Cyklokapron Inj 800 MG In NS 108 / 108 Inj 100 ML @ 200 mls/hr IV.SIG ONCE [place] Rx#:[id number] Vancomycin Inj 1 gm In 200 ml @ 200 / 200 0 mls/hr IV.SIG .STK-MED ONE Rx#:[id number] Ancef 2 GM Premix Inj 2 gm In 50 / 50 50 ml @ 100 mls/hr IV.SIG PRODUCTION PAINTER [place] Rx#:[id number] Ancef Inj 1,000 MG In NS Inj 100 / 100 100 ML @ 200 mls/hr IV.SIG Q6H [place] Rx#:[id number] Oral 240 / 240 Output: Urine 300 / 300 Other: # Voids 1 6 Date of Last Bowel Movement 04/14/18 Weight On Admission 79.5 kg Narrative: GENERAL: Alert, oriented 3, NAD. SKIN: Warm and dry. HEAD: Normocephalic. EYES: No scleral icterus. No injection or drainage. NECK: Supple, trachea midline. No JVD or lymphadenopathy. CARDIOVASCULAR: Regular rate and rhythm without murmurs, gallops, or rubs. RESPIRATORY: Breath sounds equal bilaterally. No accessory muscle use. GASTROINTESTINAL: Abdomen soft, non-tender, nondistended. MUSCULOSKELETAL: No cyanosis, or edema. BACK: Nontender without obvious deformity. No CVA tenderness. - Urinary Catheter Management Straight Cath placed during this visit: yes Reason for continuing: Not indwelling catheter Insertion date: 04/15/18 Insertion time: 08:00 Results - Labs CBC & Chem 7: 04/16/18 05:29 04/16/18 05:29 Laboratory Results - last 24 hr 04/16/18 04/16/18 05:29 05:29 WBC 9.5 RBC 3.40 L Hgb 9.5 L Hct 28.7 L MCV 84.5 MCH 27.8 MCHC 32.9 RDW 16.6 Plt Count 221 MPV 9.4 Neut % (Auto) 78.9 H Lymph % (Auto) 10.5 [place] % (Auto) 10.5 H Eos % (Auto) 0.0 Baso % (Auto) 0.1 Neut # (Auto) 7.5 Lymph # (Auto) 1.0 [place] # (Auto) 1.0 H Eos # (Auto) 0.0 Baso # (Auto) 0.0 WBC Differential . Differential Comment Auto diff final Sodium 143 Potassium 3.9 Chloride 110 H Carbon Dioxide 24.5 Anion Gap 9 BUN 17 Creatinine 0.96 Estimated GFR 72 L Random Glucose 111 H Calcium 8.2 L Total Bilirubin 0.5 AST 56 H ALT 77 H Alkaline Phosphatase 96 Total Protein 6.3 L D Albumin 2.9 L Assessment and Plan - Plan 62-year-old female admitted for elective left hip replacement surgery Osteoarthritis Status post left hip arthroplasty Continue pain treatment Orthopedic surgeons following ==> discharge today. PRN pain treatments Microcytic Anemia Hx Iron Defficiency Hx Continue supplementation Hemoglobin 9.5 on 04/16/2018. Hypertension Continue benazepril 40 mg daily, amlodipine 10 mg daily. Full code. Apixaban 2.5mg BID.
[2018-04-16] MEDS ORDERED: Lisinopril 20 MG Tablet PO SCH (15:00)
== END 2018-04-16 15:00 | disposition home health service (06) ==
LOC: HOR 07:22 → N06 08:42
PROVIDERS: ADMIT Surgery; ATTEND Surgery